=== PATIENT | male | born 1970 | race Caucasian/White ===

== ENCOUNTER 2018-02-23 01:02 | Emergency (ER) | payer MEDICAID, OTHER ==
[2018-02-23] MEDS: DIAZEPAM 2 MG TAB PO (02:04)
[2018-02-23] MEDS: KETOROLAC 30 MG INJ IM (02:04)
== END 2018-02-23 03:52 | disposition home or self-care (01) ==
LOC: FTE 01:02
DX: M54.5 Low back pain (principal)
CPT/HCPCS: 72100; 96372; 99284-25